=== PATIENT | female | born 1995 | race African-American/Black ===

== ENCOUNTER 2016-05-22 13:37 | Emergency (ER) | payer OTHER ==
[~2016-05-22] VITALS: Ht 160 cm; Wt 70.3 kg
[2016-05-22 13:42] VITALS: BP 135/65
--- NOTE | 2016-05-22 14:01 | PHYS DOC ---
Past Medical History Past Medical History: Anxiety Past Surgical History: Alcohol Use: None Drug Use: None Adult General Chief Complaint Chief Complaint: WRIST PAIN HPI HPI Patient is a 20 year old female who presents emergency room with concern of a right wrist injury. Patient states that she was attempting to pick her child up when she felt a pop in her right wrist. She states that she was concerned that it may have popped out of place. She denies any history of bone forming disorders. She denies any previous surgeries to her right hand or wrist. She denies any numbness/tingling or altered sensation in her hand. Review of Systems Review of Systems Constitutional: Denies fever or chills [] Eyes: Denies change in visual acuity, redness, or eye pain [] HENT: Denies nasal congestion or sore throat [] Respiratory: Denies cough or shortness of breath [] Cardiovascular: No additional information not addressed in HPI [] GI: Denies abdominal pain, nausea, vomiting, bloody stools or diarrhea [] : Denies dysuria or hematuria [] Musculoskeletal: Denies back pain or joint pain [] Integument: Denies rash or skin lesions [] Neurologic: Denies headache, focal weakness or sensory changes [] Endocrine: Denies polyuria or polydipsia [] Allergies Allergies Allergies Coded Allergies Type Severity Reaction Last Updated Verified No Known Drug Allergies 05/22/16 No Physical Exam Physical Exam Constitutional: Well developed, well nourished, no acute distress, non-toxic appearance. [] HENT: Normocephalic, atraumatic, bilateral external ears normal, oropharynx moist, no oral exudates, nose normal. [] Eyes: PERRLA, EOMI, conjunctiva normal, no discharge. [] Neck: Normal range of motion, no tenderness, supple, no stridor. [] Cardiovascular:Heart rate regular rhythm, no murmur [] Lungs & Thorax: Bilateral breath sounds clear to auscultation [] Abdomen: Bowel sounds normal, soft, no tenderness, no masses, no pulsatile masses. [] Skin: Warm, dry, no erythema, no rash. [] Back: No tenderness, no CVA tenderness. [] Extremities: Right hand and wrist are normal in appearance. Skin is warm and dry. Radial pulses strong and regular. There is tenderness to palpation along the extensor pollicis longus. There is no palpable defect, deformity. There is no increased pain with passive range of motion. Morteza is negative. Right upper extremity is neurovascular intact with capillary refill less than 2 seconds in all 5 fingers. Neurologic: Alert and oriented X 3, normal motor function, normal sensory function, no focal deficits noted. [] Psychologic: Affect normal, judgement normal, mood normal. [] Current Patient Data Vital Signs Vital Signs Date Time Temp Pulse Resp B/P Pulse Ox O2 Delivery O2 Flow Rate FiO2 05/22/16 13:42 97.9 77 12 99 Room Air 97.9 EKG EKG [] Radiology/Procedures Radiology/Procedures [] Course & Med Decision Making Course & Med Decision Making Pertinent Labs and Imaging studies reviewed. (See chart for details) [] Dragon Disclaimer Dragon Disclaimer This electronic medical record was generated, in whole or in part, using a voice recognition dictation system. Departure Departure Impression: Primary Impression: Strain of tendon Disposition: HOME, SELF-CARE Condition: GOOD Referrals: SARIAH CALLAWAY (PCP) Additional Instructions: 1. You strained a tendon that travels from her forearm down to your thumb. There is no evidence of a tear to the tendon dysfunction at this time. 2. Apply ice to the area every 30 minutes for 10 minutes at a time. Take ibuprofen every 8 hours or naproxen every 12 hours for the inflammation and discomfort. 3. Follow-up with your primary care doctor next week if the pain increases or does not resolve as expected. ROMEO VIRK May 22, 2016 14:01
== END 2016-05-22 14:07 | disposition home or self-care (01) ==
LOC: ER 13:37
DX: S66.911A Strain of unspecified muscle, fascia and tendon at wrist and hand level, right hand, initial encounter (principal); F41.9 Anxiety disorder, unspecified; X58.XXXA Exposure to other specified factors, initial encounter; Y93.89 Activity, other specified; Y92.89 Other specified places as the place of occurrence of the external cause; Y99.8 Other external cause status
CPT/HCPCS: 99281

== ENCOUNTER 2017-04-21 14:31 | Emergency (ER) | payer OTHER, BC ==
[2017-04-21 15:08] LABS: BILIRUBIN,URINE NEGATIVE (NEG); CLARITY,URINE CLEAR; COLOR,URINE YELLOW; GLUCOSE,URINE NEGATIVE (NEG); NITRITE,URINE NEGATIVE (NEG); PROTEIN,URINE NEGATIVE (NEG-TRACE)
[2017-04-21 15:18] LABS: BACTERIA,URINE MANY /HPF (0-FEW); RBC,URINE RARE /HPF (0-2); SQUAMOUS EPITHELIAL CELL,UR MANY /LPF
[2017-04-21 15:27] LABS: ADD MAN DIFF? NO
[2017-04-21 15:28] LABS: BASO % 0 % (0-3); EOS % 0 % (0-3); HEMATOCRIT 34.5 % (36.0-47.0); HEMOGLOBIN 11.6 g/dL (12.0-15.5); LYMPH # 1.6 x10^3/uL (1.0-4.8); LYMPH % 13 % (24-48); MEAN CORPUSCULAR HEMOGLOBIN 30 pg (25-35); MEAN CORPUSCULAR HGB CONC 34 g/dL (31-37); MEAN CORPUSCULAR VOLUME 89 fL (79-100); MONO % 9 % (0-9); NEUT % 78 % (31-73); PLATELET COUNT 196 x10^3/uL (140-400); RED BLOOD COUNT 3.89 x10^6/uL (3.50-5.40); RED CELL DISTRIBUTION WIDTH 14.1 % (11.5-14.5); WHITE BLOOD COUNT 11.6 x10^3/uL (4.0-11.0)
[2017-04-21 15:41] LABS: ANION GAP 13 (6-14); BLOOD UREA NITROGEN 6 mg/dL (7-20); BUN/CREATININE RATIO 9 (6-20); CARBON DIOXIDE 22 mmol/L (21-32); CHLORIDE 103 mmol/L (98-107); CREATININE 0.7 mg/dL (0.6-1.0); GFR 126.6; GLUCOSE 124 mg/dL (70-99); POTASSIUM 3.2 mmol/L (3.5-5.1); SODIUM 138 mmol/L (136-145)
[2017-04-21] MEDS: ACETAMINOPHEN 500 MG TABLET PO (15:45)
[2017-04-21 15:46] LABS: ALBUMIN 2.9 g/dL (3.4-5.0); ALBUMIN/GLOBULIN RATIO 0.6 (1.0-1.7); ALK PHOS 65 U/L (46-116); ALT (SGPT) 13 U/L (14-59); AST (SGOT) 14 U/L (15-37); CREATINE KINASE 38 U/L (26-192); MAGNESIUM 1.6 mg/dL (1.8-2.4); TOTAL BILIRUBIN 0.3 mg/dL (0.2-1.0); TOTAL PROTEIN 7.5 g/dL (6.4-8.2)
[2017-04-21] MEDS: ONDANSETRON PF 4 MG/2 ML VIAL. IV (15:46)
[2017-04-21] MEDS: diphenhydrAMINE 50 MG/ML VIAL IVP (15:46)
[2017-04-21] MEDS: IV NORMAL SALINE 1000ML BAG 1,000 ML IV (15:47)
[2017-04-21] MEDS: MAGNESIUM SULFATE 1GM 100 ML IV (16:10)
[2017-04-21] MEDS: MAGNESIUM OXIDE 400 MG TABLET PO (17:09)
[2017-04-21] MEDS: POTASSIUM CHLORIDE 20 MEQ TABLET.ER. PO (17:15)
== END 2017-04-21 17:25 | disposition home or self-care (01) ==
LOC: ER 14:31
DX: O23.42 Unspecified infection of urinary tract in pregnancy, second trimester (principal); R51 Headache; E87.6 Hypokalemia; E83.42 Hypomagnesemia; Z3A.26 26 weeks gestation of pregnancy
CPT/HCPCS: 36415; 80053; 81001; 82550; 83735; 85025; 87086; 96365; 96375; 99285-25; J1200; J2405; J3475; J7030